=== PATIENT | male | born 1995 | race Caucasian/White ===

== ENCOUNTER 2023-02-13 18:20 | Emergency (ER) | payer OTHER, SELFPAY ==
--- NOTE | ~2023-02-13 | US_ITS ---
EXAMINATION: US VENOUS ULTRASOUND WITH DOPPLER LOWER EXTREMITY, RIGHT CLINICAL INFORMATION: Right leg pain and swelling COMPARISON: Knee x-rays 02/13/2023 TECHNIQUE: Ultrasound of the deep veins is performed from the hip to the calf with compression sonography and color and pulse Doppler assessment. Spectral analysis with color-flow imaging is performed. FINDINGS: There is normal venous compression and respiratory variation and augmented flow. The visualized common femoral vein, superficial femoral vein, profunda femoral vein, popliteal vein, and the trifurcation region shows no evidence of deep venous thrombosis. There is no significant popliteal fossa cyst. A right knee joint effusion is present which could be seen on the plain film radiographs earlier today. If the patient's symptoms persist, followup ultrasound in 5 days 7 days might be of value to exclude proximal propagation from a non-visualized calf vein. US/US venous duplex LE RT IMPRESSION: No DVT demonstrated in the right lower extremity. A moderate-sized knee joint effusion is present.
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
[2023-02-13 18:52] VITALS: BP 125/64; PULSE 78; RESP 18; TEMP 37.1; O2SAT 98; BMI 35.6
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
[2023-02-13] MEDS: Acetaminophen 325 MG TABLET 975 MG PO (22:23)
[2023-02-13] MEDS: Ketorolac Tromethamine 15 MG/ML VIAL IM (22:23)
--- NOTE | 2023-02-13 22:35 | PC.NURSE ---
pt medicated per JUN for 8 right knee pain- pt requests to speak to provider about the possibility of draining some of the fluid from the knee. provider notified via [employer], no new orders at this time
[2023-02-13] MEDS: Lidocaine HCl 1 % MPF 5 ML VIAL INFILTRATI (23:27)
== END 2023-02-13 23:31 | disposition home or self-care (01) ==
PROVIDERS: Emergency Provider Student in an Organized Health Care Education/Training Program
DX: S70.11XA Contusion of right thigh, initial encounter (principal); M79.604 Pain in right leg; M25.461 Effusion, right knee; V19.9XXA Pedal cyclist (driver) (passenger) injured in unspecified traffic accident, initial encounter; Y93.9 Activity, unspecified; Y92.9 Unspecified place or not applicable; Y99.9 Unspecified external cause status
CPT/HCPCS: 20610; 73552; 73564; 93971; 96372; 99283; 99284; J1885

== ENCOUNTER 2023-02-22 12:21 | Outpatient (AMB) | payer OTHER, SELFPAY ==
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
== END 2023-02-22 13:06 | disposition home or self-care (01) ==
PROVIDERS: Visit Provider Orthopaedic Surgery
DX: S83.519A Sprain of anterior cruciate ligament of unspecified knee, initial encounter (principal)
CPT/HCPCS: 99202

== ENCOUNTER → 2023-02-22 12:21 | Outpatient (BNVA) | payer OTHER, SELFPAY | PROVIDERS: Visit Provider Orthopaedic Surgery | DX: S83.511A Sprain of anterior cruciate ligament of right knee, initial encounter (principal) | CPT/HCPCS: 99202 ==

== ENCOUNTER 2023-03-07 14:15 | Outpatient (AMB) | payer OTHER, SELFPAY ==
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
[2023-03-07 14:19] VITALS: BMI 29.4
== END 2023-03-07 14:51 | disposition home or self-care (01) ==
PROVIDERS: Visit Provider Orthopaedic Surgery
DX: M25.561 Pain in right knee (principal)
CPT/HCPCS: 99212

== ENCOUNTER → 2023-03-07 14:15 | Outpatient (BNVA) | payer OTHER, SELFPAY | PROVIDERS: Visit Provider Orthopaedic Surgery | DX: M25.561 Pain in right knee (principal) | CPT/HCPCS: 99212 ==